=== PATIENT | male | born 1995 | race Caucasian/White ===

== ENCOUNTER 2021-02-19 15:26 | Emergency (ER) | payer OTHER, SELFPAY ==
[2021-02-19 15:45] VITALS: BP 145/83; PULSE 73; RESP 18; TEMP 36.8; O2SAT 100
--- NOTE | 2021-02-19 15:58 | ED.GENADULT ---
HPI - General Adult General Chief complaint: Wound/Laceration Stated complaint: facial laceration Time Seen by Provider: 02/19/21 15:59 Source: patient and RN notes reviewed Mode of arrival: ambulatory (carried) Limitations: no limitations History of Present Illness HPI narrative: 25-year-old male presents with complaints of lacerations to right side of nose caused by hitting face on a blunt instrument on a farm (unknown name of instrument per patient) 1.5 hours ago. Te reports walking on father's farm looking the opposite direction and ran into farm equipment causing lacerations to face. Clean area with soap and water pressure applied to control bleeding. No loss of consciousness, blurred vision, double vision, dizziness, or seizure activity. Denies vertigo or immobility. Denies nausea or vomiting. Tolerating po intake well. Denies pain, numbness or tingling, or weakness of upper or lower extremities. No foreign body sensation. Tetanus not up-to-date. Remains active. The patient reports he have not been diagnosed with COVID-19. The patient reports he is not waiting for the results of a COVID-19 lab test. The patient reports he do not have chills, weakness, or fatigue. The patient reports he do not have a new or worsening cough or shortness of breath. Denies chest pain. The patient reports he do not have any rhinorrhea, congestion, loss of taste or smell, sore throat, abdominal pain, and diarrhea. Denies recent traveling. Denies concerns for COVID-19 or exposures been home with limited outdoor exposure except for essential household needs, work, and return home. At this time, patient is not suspected of having COVID-19. Some parts of this dictation were generated by voice recognition software and may contain typographical and/or grammatical inaccuracies Related Data Allergies Allergy/AdvReac Type Severity Reaction Status Date / Time No Known Allergies Allergy Mild Verified 02/19/21 16:28 Review of Systems Review of Systems: Narrative: CONSTITUTIONAL: Denies fever, chills, sweats. EYES: Denies visual changes, redness, discharge. ENT: Denies rhinorrhea, congestion, sore throat, otalgia. CARDIOVASCULAR: Denies chest pain, palpitations, edema. RESPIRATORY: Denies dyspnea, wheezing, cough. GASTROINTESTINAL: Denies abdominal pain, nausea, vomiting, diarrhea. SKIN: Denies rash or itching. Complains of lacerations to right side of nose. MUSCULOSKELETAL: Denies acute back pain, joint pain, or myalgia. NEUROLOGIC: Denies numbness or focal weakness. PSYCHIATRIC: Denies anxiety or depression. All other systems reviewed are negative, except as documented in HPI and below. [facility] Past Medical History Medical History (Updated 02/20/21 @ 00:01 by Rose Keita) Wrist fracture Surgical History Surgical History (Updated 02/19/21 @ 16:20 by DEAN Reardon) No significant past surgical history Family History Family History (Updated 02/19/21 @ 16:20 by DEAN Reardon) Father Hypertension Mother Diabetes mellitus Social History Social History (Updated 02/19/21 @ 16:21 by DEAN Reardon) Smoking status: Never smoker Tobacco type: cigarettes Second hand tobacco smoke exposure: No Alcohol intake: current Substance use: never Living arrangements: with family Occupation/Education: occupation Gender identity (if verbalized by the patient): Male Sexual Orientation (if Verbalized by the Patient): Straight or Heterosexual Comments At time of signature, agree with nurse past medical, surgical, social, and family history. There is no relevant family history pertinent to the presenting complaint. Exam Narrative: Exam Narrative: GENERAL: This is a well-nourished, well-developed patient, in no apparent distress. Talks in full sentences and ambulates with steady gait without dyspnea. HEAD: Normocephalic, atraumatic. EYES: PERRL. Sclera clear/white. Vision is grossly intac
[2021-02-19] MEDS: TETANUS,DIPHTHERIA,AC PERTUSSIS ADULT (0.5 ML) BOOSTRIX IM (16:21)
== END 2021-02-19 16:42 | disposition home or self-care (01) ==
PROVIDERS: Emergency Provider Nurse Practitioner Family
DX: S01.21XA Laceration without foreign body of nose, initial encounter (principal); W22.8XXA Striking against or struck by other objects, initial encounter; Z23 Encounter for immunization
CPT/HCPCS: 90471; 90715; 99203; G0463

== ENCOUNTER 2021-04-06 17:16 | Emergency (ER) | payer OTHER, SELFPAY ==
--- NOTE | 2021-04-06 17:22 | ED.UPPEXIN ---
HPI - Extremity Injury (Upper) General Chief Complaint: Wound/Laceration Stated Complaint: Bite on finger Time Seen by Provider: 04/06/21 17:30 Source: patient and RN notes reviewed Mode of arrival: ambulatory Limitations: no limitations History of Present Illness HPI narrative: 26 yo male presents to the [facility] with C/O a bite to the right 4th finger that he first noticed on Tuesday, 3 days ago. States that it started getting swollen and tried squeezing it went over the last 2 days has gotten a lot worse. Does have full range of motion. Sensation intact distal to infection. Capillary refill under 2 seconds Patient denies any past medical or surgical history Related Data Home Medications Medication Instructions Recorded Confirmed dextroamphetamine-amphetamine 04/06/21 Allergies Allergy/AdvReac Type Severity Reaction Status Date / Time No Known Allergies Allergy Mild Verified 02/19/21 16:28 Review of Systems Review of Systems: All systems reviewed & are unremarkable except as noted in HPI and below Constitutional: Constitutional: Reports no additional constitutional complaints, Denies chills and Denies fever(s) Eyes: Eyes: Reports no additional eye complaints ENT: Reports system reviewed and no additional complaints, except as documented Cardiovascular: Cardiovascular: Reports no additional cardiovascular complaints and Denies chest pain Respiratory: Respiratory: Reports no additional respiratory complaints, Denies cough, Denies dyspnea and Denies wheezing Musculoskeletal: Musculoskeletal: Reports no additional musculoskeletal complaints, Denies back pain, Denies arthralgias and Denies joint swelling Integumentary/Breasts: Skin/Breast: Reports erythema (Right fourth finger) Neurologic: Reports system reviewed and no additional complaints, except as documented, Denies dizziness, Denies syncope, Denies focal weakness and Denies numbness Psychiatric: Psychiatric: Reports no additional psychiatric complaints Allergic/Immunologic: Allergic/Immunologic: Reports no additional allergic/immunologic complaints [facility] Past Medical History Medical History Wrist fracture Surgical History Surgical History No significant past surgical history Family History Family History Father Hypertension Mother Diabetes mellitus Social History Social History Smoking status: Never smoker Tobacco type: cigarettes Second hand tobacco smoke exposure: No Alcohol intake: current Substance use: never Gender identity (if verbalized by the patient): Male Comments At the time of my signature, I reviewed and agree with the nursing past medical, surgical, social, and family history. There is no relevant family history pertinent to the patient complaint. Exam Const: General: healthy appearing, no acute distress and alert Nutritional Appearance: well nourished Orientation/consciousness: patient oriented x3 HENMT: Head: normal to inspection Neck: Neck: normal visual inspection, no lymphadenopathy and no meningeal signs Chest: Chest palpation & inspection: normal inspection of the chest Resp: Effort & Inspection: normal respiratory effort and no use of accessory muscles Auscultation: clear to auscultation bilaterally, no crackles, no rales, no rhonchi and no wheezes Cardio: Rate: regular rate Rhythm: regular rhythm Back/Spine/Pelvis: Back: no CVA tenderness Skin: General skin exam: no rashes or lesions noted, erythema (Dorsal aspect right fourth finger, 1 cm in diameter with a fluctuant center) and fluctuance Rashes: no rashes Neuro: General: patient oriented x3, moves all extremities, no meningeal signs and no focal motor deficits Speech: normal speech Gait exam (Neuro): Normal gait present Extrem: General:
[2021-04-06 17:25] VITALS: BP 122/89; PULSE 86; RESP 16; TEMP 37.1; O2SAT 100
== END 2021-04-06 17:47 | disposition home or self-care (01) ==
PROVIDERS: Emergency Provider Nurse Practitioner; PCP Internal Medicine
DX: L02.511 Cutaneous abscess of right hand (principal)
CPT/HCPCS: 10160; 87070; 87075; 87147; 87186; 87205; 99213; G0463

== ENCOUNTER 2021-07-06 17:06 | Emergency (ER) | payer OTHER, SELFPAY ==
[2021-07-06 17:18] VITALS: BP 113/79; PULSE 86; RESP 16; TEMP 36.2; O2SAT 99
--- NOTE | 2021-07-06 18:12 | ED.SKABFB ---
HPI - Skin/Abscess/Foreign Bdy General Chief complaint: Skin/Abscess/Foreign Body Stated complaint: Chigger Bites Time Seen by Provider: 07/06/21 18:13 Source: patient and RN notes reviewed Mode of arrival: ambulatory Limitations: no limitations History of Present Illness HPI narrative: 26-year-old male presents concern for possible skin infection. Reports over a week ago he had chigger bites on his lower legs, ankles, waistline. Reports the bites on his ankles have become excoriated, draining. Reports he wears tall work boots with socks that consistently rub on the chigger bites. Reports he has been covering them with gauze with no relief. He reports inguinal lymphadenopathy, denies other systemic symptoms such as fever, body aches, chills. He denies trouble breathing, swollen lips, swollen tongue MD complaint: abscess/boil Related Data Allergies Allergy/AdvReac Type Severity Reaction Status Date / Time No Known Allergies Allergy Mild Verified 07/06/21 17:39 Review of Systems Review of Systems: CONSTITUTIONAL: Denies malaise, chills, sweats, or fever. ENT: Denies swollen lips, swollen tongue CARDIOVASCULAR: Denies chest pain, palpitations, or edema. RESPIRATORY: Denies cough or dyspnea. GASTROINTESTINAL: Denies nausea, vomiting, diarrhea SKIN: Reports several open sores with drainage to the bilateral lower leg/ankle area. MUSCULOSKELETAL: Denies back pain, joint pain, or myalgia. All systems reviewed & are unremarkable except as noted in HPI and below PMFSH Past Medical History Medical History Wrist fracture Surgical History Surgical History No significant past surgical history Family History Family History Father Hypertension Mother Diabetes mellitus Social History Social History Smoking status: Never smoker Tobacco type: cigarettes Second hand tobacco smoke exposure: No Alcohol intake: current Substance use: never Gender identity (if verbalized by the patient): Male Sexual Orientation (if Verbalized by the Patient): Straight or Heterosexual Comments At time of signature, agree with nursing past medical, surgical, social and family history. There is no relevant family history pertinent to the presenting complaint Exam Narrative: GENERAL: Well-appearing, well-nourished, and in no acute distress. HEAD: Normocephalic, atraumatic. EYES: PERRLA, conjunctivae clear, and EOMI. ENT: Mucous membranes moist. Oropharynx without edema, erythema or lesions. NECK: Supple. No lymphadenopathy CHEST: Clear to auscultation. No respiratory distress. HEART: Regular rate and rhythm. SKIN: Warm, dry. Mild inguinal lymphadenopathy noted, lymph nodes mobile, soft. Multiple open sores noted to the ankle area, scattered in various sizes and stages of healing, with beefy red tissue bed and yellow drainage. Some with mild surrounding erythema and induration. NEURO: Alert and oriented x3. PSYCH: Normal mood and affect Course Course Emergency Course: Patient is aware of diagnosis, understands and agrees to treatment plan. Anticipatory guidance given. Patient agrees to follow-up as directed and is aware of reasons to seek care at the emergency department. Portions of this record may have been created with voice recognition software Vital Signs Vital signs: Vital Signs Temperature 97.2 F L 07/06/21 17:18 Pulse Rate 86 07/06/21 17:18 Respiratory Rate 16 07/06/21 17:18 Blood Pressure 113/79 07/06/21 17:18 Pulse Oximetry 99 07/06/21 17:18 Temperature 97.2 F L 07/06/21 17:18 Pulse Rate 86 07/06/21 17:18 Respiratory Rate 16 07/06/21 17:18 Blood Pressure 113/79 07/06/21 17:18 Pulse Oximetry 99 07/06/21 17:18 Reviewed. MDM - Skin/Abscess/Foreign Bdy MDM Narrative Medical decision
== END 2021-07-06 18:29 | disposition home or self-care (01) ==
PROVIDERS: Emergency Provider Nurse Practitioner
DX: L08.9 Local infection of the skin and subcutaneous tissue, unspecified (principal); B96.89 Other specified bacterial agents as the cause of diseases classified elsewhere; R59.0 Localized enlarged lymph nodes
CPT/HCPCS: 99213; G0463

== ENCOUNTER 2021-10-12 17:10 | Emergency (ER) | payer OTHER, SELFPAY ==
[2021-10-12 17:24] VITALS: BP 128/73; PULSE 105; RESP 18; TEMP 37.4; O2SAT 99
--- NOTE | 2021-10-12 17:27 | ED.URI ---
HPI - URI/Sore Throat General Chief Complaint: Upper Respiratory Infection Stated Complaint: fatigue,nasal drip Time Seen by Provider: 10/12/21 17:27 Source: patient, RN notes reviewed and old records reviewed Mode of arrival: ambulatory Limitations: no limitations History of Present Illness HPI Narrative: 26-year-old male presents to the [facility] with complaints of postnasal drip and increased fatigue that started this morning. No treatment prior to arrival. Denies fevers. No nasal congestion, cough, chest pain, abdominal pain. No nausea vomiting or diarrhea. Patient reports that he was in close contact with someone who pet tested positive for Covid recently. Related Data Home Medications Medication Instructions Recorded Confirmed No Home Medications 10/12/21 10/12/21 Allergies Allergy/AdvReac Type Severity Reaction Status Date / Time No Known Allergies Allergy Mild Verified 10/12/21 17:28 Review of Systems Review of Systems: All systems reviewed & are unremarkable except as noted in HPI and below Constitutional: Constitutional: Reports as per HPI, Denies chills, Reports fatigue and Denies fever(s) Eyes: Eyes: Reports no additional eye complaints ENT: Reports as per HPI Comments: Postnasal drip Cardiovascular: Cardiovascular: Reports no additional cardiovascular complaints Respiratory: Respiratory: Reports no additional respiratory complaints Gastrointestinal: Gastrointestinal: Reports no additional gastrointestinal complaints Musculoskeletal: Musculoskeletal: Reports no additional musculoskeletal complaints Integumentary/Breasts: Skin/Breast: Reports system reviewed and no additional complaints, except as docu Neurologic: Reports system reviewed and no additional complaints, except as documented Psychiatric: Psychiatric: Reports no additional psychiatric complaints Allergic/Immunologic: Allergic/Immunologic: Reports no additional allergic/immunologic complaints [facility] Past Medical History Medical History Wrist fracture Surgical History Surgical History No significant past surgical history Family History Family History Father Hypertension Mother Diabetes mellitus Social History Social History Smoking status: Never smoker Tobacco type: cigarettes Second hand tobacco smoke exposure: No Alcohol intake: current Substance use: never Gender identity (if verbalized by the patient): Male Sexual Orientation (if Verbalized by the Patient): Straight or Heterosexual Comments At the time of my signature, I reviewed and agree with the nursing past medical, surgical, social, and family history. There is no relevant family history pertinent to the patient complaint. Exam Const: General: healthy appearing, no acute distress and alert; No ill appearing Nutritional Appearance: well nourished Orientation/consciousness: patient oriented x3 Limitations: no limitations HENMT: Head: normal to inspection Ears: external ears normal and Abnormal EAC present cerumen impaction bilateral General nose exam: Normal external nose present and Normal nares present Mouth: Yes moist mucous membranes Throat: posterior oropharynx normal Other: Patient states he will use eardrops Eyes: Pupils: Equal, round and reactive pupils present Neck: Neck: normal visual inspection, no lymphadenopathy and no meningeal signs Chest: Chest palpation & inspection: normal inspection of the chest Resp: Effort & Inspection: normal respiratory effort and no use of accessory muscles Auscultation: clear to auscultation bilaterally, no crackles, no rales, no rhonchi and no wheezes Cardio: Rate: regular rate Rhythm: regular rhythm Back/Spine/Pelvis: Back: no CVA tenderness Skin: General skin exam: normal color Rashes: no r
== END 2021-10-12 17:40 | disposition home or self-care (01) ==
PROVIDERS: Emergency Provider Nurse Practitioner
DX: R53.83 Other fatigue (principal); Z20.822 Contact with and (suspected) exposure to COVID-19
CPT/HCPCS: 99211; G0463

== ENCOUNTER → 2021-10-14 02:48 | Outpatient (CLI) | payer OTHER, SELFPAY ==
[2021-10-14 19:40] LABS: SARS-CoV-2 RNA PCR Negative
== END ==
PROVIDERS: Visit Provider Nurse Practitioner
DX: R53.83 Other fatigue (principal); Z20.822 Contact with and (suspected) exposure to COVID-19
CPT/HCPCS: C9803; U0003; U0005

== ENCOUNTER 2024-09-04 12:46 | Emergency (ER) | payer OTHER, SELFPAY ==
--- NOTE | 2024-09-04 12:54 | ED.GENADULT ---
HPI - General Adult General Chief complaint: Extremity Injury, Upper Stated complaint: LT Arm Redness Time Seen by Provider: 09/04/24 13:19 Source: patient, RN notes reviewed and old records reviewed Mode of arrival: ambulatory Limitations: no limitations History of Present Illness HPI narrative: 29-year-old male presents to the [facility] with linear blisters to the left mid forearm describes it is irritation, itching. Patient also has concern of a red patch to the shaft of the penis. Area is pink in color, not raised. Denies pain. No vesicular areas. Patient reports concerns and wants area swabbed so he knows what it is. Discussed with patient if he has concern for STDs, we only test for 3, chlamydia, gonorrhea or Trichomonas. Patient denies any penile discharge or trouble with urination. Onset (ago): day(s) Related Data Allergies Allergy/AdvReac Type Severity Reaction Status Date / Time No Known Allergies Allergy Mild Verified 10/12/21 17:28 Review of Systems Review of Systems: All systems reviewed & are unremarkable except as noted in HPI and below Constitutional: Constitutional: Reports no additional constitutional complaints ENT: Reports system reviewed and no additional complaints, except as documented Cardiovascular: Cardiovascular: Reports no additional cardiovascular complaints, Denies chest pain and Denies dyspnea Respiratory: Respiratory: Reports no additional respiratory complaints, Denies chest congestion, Denies cough and Denies dyspnea Gastrointestinal: Gastrointestinal: Reports no additional gastrointestinal complaints, Denies abdominal pain, Denies nausea and Denies vomiting Musculoskeletal: Musculoskeletal: Reports no additional musculoskeletal complaints Integumentary/Breasts: Skin/Breast: Reports as per HPI [facility] Past Medical History Medical History Wrist fracture Surgical History Surgical History No significant past surgical history Family History Family History Father Hypertension Mother Diabetes mellitus Social History Social History Smoking status: Never smoker Tobacco type: cigarettes Second hand tobacco smoke exposure: No Alcohol intake: current Substance use: never Living arrangements: with family Occupation/Education: occupation Gender identity (if verbalized by the patient): Male Sexual Orientation (if Verbalized by the Patient): Straight or Heterosexual Comments At the time of my signature, I reviewed and agree with the nursing past medical, surgical, social, and family history. There is no relevant family history pertinent to the patient complaint. Exam Const: General: cooperative, healthy appearing, comfortable, no acute distress, well developed, alert and well nourished Nutritional Appearance: well nourished Orientation/consciousness: patient oriented x3 Limitations: no limitations HENMT: Head: normal to inspection Ears: hearing grossly normal bilaterally and external ears normal Face/Nose/Sinus: Normal external nose present, normal facial exam and face symmetric Face and sinus: normal facial exam and face symmetric Eyes: General: appearance normal, both eyes and all related structures Alignment and Position: alignment normal Periorbital: periorbital findings normal Neck: Neck: normal visual inspection, full ROM, no lymphadenopathy and no meningeal signs Chest: Chest palpation & inspection: normal inspection of the chest Resp: Effort & Inspection: normal respiratory effort and able to speak in complete sentences Cardio: Rate: regular rate : Male genitals images: 1. Red circular a, not raised, not to touch, no fluctuance, no blistery areas. Skin: General skin exam: normal color and no rashes or lesions noted Lesions: no lesions Wounds: no wounds Other: Patient with a blistery area, 1 cm in length on the left mid forearm Neuro: General: patient oriented x3, gait normal, tone normal, moves all extremities and no meningeal signs Cognition (Neuro): normal cognition Speech: normal speech Gait exam (Neuro): Normal gait present Extrem: General: normal to inspection, full ROM, capillary refill normal and normal gait Psych: Appearance: grossly normal and well kempt Mental Status: mental status grossly normal Speech and movement: Normal speech and movement present and Clear speech present Affect: normal affect Attitude: cooperative Course Course Level of Care: Express Care Visit Vital Signs Vital signs: Vital Signs Temperature 98.0 F 09/04/24 12:57 Pulse Rate 73 09/04/24 12:57 Respiratory Rate 16 09/04/24 12:57 Blood Pressure 132/76 09/04/24 12:57 Pulse Oximetry 100 09/04/24 12:57 Oxygen Delivery Room Air 09/04/24 12:57 Temperature 98.0 F 09/04/24 12:57 Pulse Rate 73 09/04/24 12:57 Respiratory Rate 16 09/04/24 12:57 Blood Pressure 132/76 09/04/24 12:57 Pulse Oximetry 100 09/04/24 12:57 Oxygen Delivery Room Air 09/04/24 12:57 Reviewed Medical Decision Making MDM Narrative Medical decision making narrative: Patient sitting comfortably in exam room. Nontoxic, vitals stable. Patient in no acute distress Patient presents for 2 complaints. Blistery. To arm, red circular area to penis. Both most consistent with a dermatitis, will treat Patient stated concerns STDs that we do not test for, STD Clinic sheet given Discharge instructions reviewed with patient, as well as provided in writing per nursing staff. The instructions also include specific and strict return/GO TO THE ER as well as f/u information. All questions have been answered, and the patient deny any further questions with discharge and discharge plan. Some parts of this dictation were generated by voice recognition software and may contain typographical and/or grammatical inaccuracies. Differential Diagnosis Differential Diagnosis: Dermatitis Medical Records Medical records reviewed: Yes I reviewed the external patient's medical records. Vital Signs Vital Signs: Vital Signs Temperature 98.0 F 09/04/24 12:57 Pulse Rate 73 09/04/24 12:57 Respiratory Rate 16 09/04/24 12:57 Blood Pressure 132/76 09/04/24 12:57 Pulse Oximetry 100 09/04/24 12:57 Oxygen Delivery Room Air 09/04/24 12:57 Temperature 98.0 F 09/04/24 12:57 Pulse Rate 73 09/04/24 12:57 Respiratory Rate 16 09/04/24 12:57 Blood Pressure 132/76 09/04/24 12:57 Pulse Oximetry 100 09/04/24 12:57 Oxygen Delivery Room Air 09/04/24 12:57 Reviewed Lab Data Lab results reviewed: Yes I reviewed the patient's lab results. Labs: Reviewed Critical Care Time Critical Care Time Critical Care Time: No Discharge Plan Discharge Clinical Impression: Dermatitis Patient Disposition: Home, Self-Care Condition: Stable Instructions: Antibiotic Form, Dermatitis (ED) Additional Instructions: Wash area with warm soapy water, pat dry. Apply the cream you are prescribed only to your forearm. Follow-up with your primary care provider or a clinic for further evaluation testing for your your concerns. For new or worsening symptoms go directly to the emergency room Patient Language: [place] Prescriptions: New prednisone 20 mg tablet See Rx Instructions .Route .COMPLEX Qty: 9 0RF Rx Instructions: Take 40 mg daily for 3 days, 20 mg daily for 3 days triamcinolone acetonide 0.1 % cream 1 applic topical BID Qty: 15 0RF Follow-up/Referrals: Luci,Robert Shaw MD [Primary Care Provider] - 1 Week ([facility] care follow up ) Stand Alone Forms: Work/School Release IP Time of Disposition: 13:34
[2024-09-04 12:57] VITALS: BP 132/76; PULSE 73; RESP 16; TEMP 36.7; O2SAT 100
== END 2024-09-04 13:46 | disposition home or self-care (01) ==
PROVIDERS: Emergency Provider Nurse Practitioner; PCP Internal Medicine
DX: L30.9 Dermatitis, unspecified (principal)
CPT/HCPCS: 99213; G0463